=== PATIENT | male | born 1950 | race Two or more races ===

== ENCOUNTER 2020-10-03 16:39 | Inpatient (IN) | payer OTHER ==
[~2020-10-03] VITALS: Ht 175.3 cm; Wt 82.1 kg
[2020-10-05] MEDS ORDERED: GABAPENTIN800 M1 PO (13:01)
[2020-10-05] MEDS ORDERED: LOVAZA1 GM PO (13:02)
[2020-10-19] MEDS ORDERED: SULINDAC200 MG (08:00)
[2020-10-19] MEDS ORDERED: FLUOROMETHOLONE5 ML (08:00)
== END 2020-10-20 14:30 | DRG 470 ==
LOC: O/R 10-18 06:00 → SURG 10-18 06:00 → SURH 10-18 08:45 → SURG 10-18 13:14
PROVIDERS: ADMIT Orthopaedic Surgery; ATTEND Orthopaedic Surgery
PROC: 0SRC0J9 Replacement of Right Knee Joint with Synthetic Substitute, Cemented, Open Approach (ICD-10-PCS; principal; 2020-10-18 08:45)
DX: M17.11 Unilateral primary osteoarthritis, right knee (principal); M85.661 Other cyst of bone, right lower leg; Z20.822 Contact with and (suspected) exposure to COVID-19